=== PATIENT | male | born 1950 | race Caucasian/White ===

== ENCOUNTER 2021-07-19 02:02 | Emergency (ER) | payer OTHER ==
[2021-07-19 02:56] LABS: RED BLOOD COUNT 4.98 M/UL (4.20-5.50)
[2021-07-19] MEDS ORDERED: CYCLOBENZAPRINE10 MG PO (11:06)
== END 2021-07-19 11:00 | disposition home or self-care (01) ==
LOC: ER1 02:02
PROVIDERS: Physician Assistant
DX: N32.9 Bladder disorder, unspecified (principal); R31.9 Hematuria, unspecified; I48.91 Unspecified atrial fibrillation; E11.9 Type 2 diabetes mellitus without complications; Z95.0 Presence of cardiac pacemaker; Z87.442 Personal history of urinary calculi; Z79.01 Long term (current) use of anticoagulants; Z90.49 Acquired absence of other specified parts of digestive tract; Z86.16 Personal history of COVID-19
CPT/HCPCS: 51702; 80053; 81001; 85025; 85610; 99284